=== PATIENT | male | born 1970 | race African-American/Black ===

== ENCOUNTER 2019-10-29 02:22 | Inpatient (IN) | payer MEDICAID ==
[~2019-10-29] VITALS: Ht 177.8 cm; Wt 96.1 kg
[2019-10-29] MEDS ORDERED: ACETAMINOPHEN 325 MG TABLET PO ONE (03:30)
[2019-10-29 04:08] LABS: BASOPHILS % (AUTO) 0.2 % (0.0-2.0); EOSINOPHILS % (AUTO) 0 % (1.0-6.0); HEMATOCRIT 43.6 % (41-53); MEAN CORPUSCULAR HEMOGLOBIN 31.2 pg (26.0-34.0); MEAN CORPUSCULAR HGB CONC 34.3 G/dL (31.0-37.0); MEAN CORPUSCULAR VOLUME 91 fL (80-100); MONOCYTES # (AUTO) 0.6 K/uL (0.1-1.0); MONOCYTES % (AUTO) 8.2 % (2.0-9.0); NEUTROPHILS % (AUTO) 78.6 % (40.0-70.0); PLATELET COUNT (AUTO) 291 K/uL (150-450); RED CELL DISTRIBUTION WIDTH 14.4 % (11.5-14.5)
[2019-10-29 04:16] LABS: ANION GAP 14 mmol/L (8-16); CALCIUM, TOTAL 8.9 mg/dL (8.8-10.5); CARBON DIOXIDE 22 mmol/L (22-29); CHLORIDE 99 mmol/L (98-107); CREATININE 1.16 mg/dL (0.60-1.30); GLOMERULAR FILTR. RATE CALC > 60 mL/min (>60); GLUCOSE,RANDOM 113 mg/dL (70-110); POTASSIUM 3.8 mmol/L (3.5-5.1); SODIUM SERUM 135 mmol/L (136-145); UREA NITROGEN, BLOOD 18 mg/dL (7-18)
[2019-10-29 04:23] LABS: ALANINE AMINOTRANSFERASE 62 U/L (12-78); ALBUMIN 3.5 g/dL (3.4-5.0); ALKALINE PHOSPHATASE 71 U/L (46-116); ASPARTATE AMINOTRANSFERASE 73 U/L (15-37); BILIRUBIN,TOTAL 0.8 mg/dL (0.1-1.0); TOTAL PROTEIN, SERUM 8.5 g/dL (6.4-8.2)
[2019-10-29] MEDS ORDERED: ACETAMINOPHEN 325 MG TABLET PO PRN ×2 (04:45→06:00)
[2019-10-29] MEDS ORDERED: ONDANSETRON HCL 4 MG/2 ML VIAL IVP PRN (04:45)
[2019-10-29] MEDS ORDERED: 0.9% SODIUM CHLORIDE 10 ML SYRINGE IVP PRN (04:45)
[2019-10-29] MEDS ORDERED: AZITHROMYCIN 500 MG TABLET PO ONE (05:00)
[2019-10-29] MEDS ORDERED: HYDROXYCHLOROQUINE SULFATE 200 MG TABLET PO ONE (05:00)
[2019-10-29 05:27] LABS: C-REACTIVE PROTEIN QUANT 12.17 mg/dL (0.00-0.30)
[2019-10-29 05:28] LABS: FERRITIN 1730 ng/mL (26-388)
[2019-10-29 05:39] LABS: LACTATE DEHYDROGENASE 520 U/L (85-227)
[2019-10-29] MEDS ORDERED: MAGNESIUM HYDROXIDE SUSPENSION 30 ML UDCUP PO PRN (06:00)
[2019-10-29] MEDS ORDERED: MORPHINE SULFATE 2 MG/ML SYRINGE IVP PRN (06:00)
[2019-10-29] MEDS ORDERED: ALBUTEROL SULFATE 2.5 MG/0.5 ML NEB SOLUTION NEB PRN (06:00)
[2019-10-29] MEDS ORDERED: BISACODYL 10 MG RECTAL RECTAL SUPPOSITORY PR PRN (06:00)
[2019-10-29] MEDS ORDERED: HYDROCODONE/ACETAMINOPHEN 5-325 MG TABLET PO PRN (06:00)
[2019-10-29] MEDS ORDERED: IPRATROPIUM BROMIDE 0.5 MG/2.5 ML NEB SOLUTION NEB PRN (06:00)
[2019-10-29] MEDS ORDERED: ZOLPIDEM TARTRATE 5 MG TABLET PO PRN (06:00)
[2019-10-29 06:12] VITALS: BP 109/76
[2019-10-29 07:19] VITALS: BP 106/73
[2019-10-29] MEDS ORDERED: SODIUM CHLORIDE 0.9% 500 ML IV ONE (08:14)
[2019-10-29] MEDS: DOCUSATE SODIUM 100 MG CAPSULE PO SCH ×2 (08:20→20:27)
[2019-10-29] MEDS: HEPARIN SODIUM,PORCINE 5,000 UNITS/ML VIAL SQ SCH ×2 (08:20→16:18)
[2019-10-29] MEDS: HYDROXYCHLOROQUINE SULFATE 200 MG TABLET PO SCH ×2 (08:21→20:27)
[2019-10-29] MEDS: CefTRIAXone 1 GM/DEXTROSE 50 ML IV SCH (08:22)
[2019-10-29 11:01] VITALS: BP 108/70
[2019-10-29] MEDS: ZINC SULFATE 220 MG CAPSULE PO SCH (12:48)
[2019-10-29 15:38] VITALS: BP 106/69
[2019-10-29 19:14] VITALS: BP 112/74
[2019-10-30 00:06] VITALS: BP 105/68
[2019-10-30 04:07] VITALS: BP 109/63
[2019-10-30] MEDS: CefTRIAXone 1 GM/DEXTROSE 50 ML IV SCH (06:20)
[2019-10-30 07:07] VITALS: BP 105/66
[2019-10-30 07:48] LABS: BASOPHILS % (AUTO) 0.4 % (0.0-2.0); EOSINOPHILS % (AUTO) 0.1 % (1.0-6.0); HEMATOCRIT 41.8 % (41-53); HEMOGLOBIN 14.2 g/dL (13.5-17.5); LYMPHOCYTES # (AUTO) 1.6 K/uL (1.0-4.8); LYMPHOCYTES % (AUTO) 25.2 % (22.0-44.0); MEAN CORPUSCULAR HEMOGLOBIN 31.1 pg (26.0-34.0); MEAN CORPUSCULAR VOLUME 92 fL (80-100); MONOCYTES # (AUTO) 0.6 K/uL (0.1-1.0); MONOCYTES % (AUTO) 9.5 % (2.0-9.0); NEUTROPHILS % (AUTO) 64.8 % (40.0-70.0); PLATELET COUNT (AUTO) 345 K/uL (150-450); RED BLOOD CELL COUNT(AUTO) 4.57 MIL/uL (4.50-5.90); RED CELL DISTRIBUTION WIDTH 14.3 % (11.5-14.5)
[2019-10-30 09:07] LABS: ALANINE AMINOTRANSFERASE 77 U/L (12-78); ALBUMIN 3.1 g/dL (3.4-5.0); ALKALINE PHOSPHATASE 75 U/L (46-116); ANION GAP 15 mmol/L (8-16); ASPARTATE AMINOTRANSFERASE 77 U/L (15-37); BILIRUBIN,TOTAL 0.7 mg/dL (0.1-1.0); C-REACTIVE PROTEIN QUANT 13.65 mg/dL (0.00-0.30); CALCIUM, TOTAL 8.8 mg/dL (8.8-10.5); CARBON DIOXIDE 22 mmol/L (22-29); CHLORIDE 98 mmol/L (98-107); CREATINE KINASE, TOTAL ONLY 299 U/L (39-308); CREATININE 1.08 mg/dL (0.60-1.30); FERRITIN 1778 ng/mL (26-388); GLOMERULAR FILTR. RATE CALC > 60 mL/min (>60); GLUCOSE,RANDOM 98 mg/dL (70-110); POTASSIUM 3.8 mmol/L (3.5-5.1); SODIUM SERUM 135 mmol/L (136-145); TOTAL PROTEIN, SERUM 7.9 g/dL (6.4-8.2); UREA NITROGEN, BLOOD 18 mg/dL (7-18)
[2019-10-30] MEDS: ZINC SULFATE 220 MG CAPSULE PO SCH ×2 (09:17→21:08)
[2019-10-30] MEDS: HYDROXYCHLOROQUINE SULFATE 200 MG TABLET PO SCH ×2 (09:17→21:08)
[2019-10-30] MEDS: DOCUSATE SODIUM 100 MG CAPSULE PO SCH ×2 (09:17→21:00)
[2019-10-30] MEDS: HEPARIN SODIUM,PORCINE 5,000 UNITS/ML VIAL SQ SCH ×3 (09:18→16:01)
[2019-10-30 09:19] LABS: LACTATE DEHYDROGENASE 532 U/L (85-227)
[2019-10-30 10:36] VITALS: BP 102/69
[2019-10-30] MEDS: AZITHROMYCIN 500 MG TABLET PO SCH (12:06)
[2019-10-30 15:54] VITALS: BP 100/73
[2019-10-30 19:53] VITALS: BP 104/62
[2019-10-31 00:44] VITALS: BP 99/73
[2019-10-31 04:00] VITALS: BP 110/77
[2019-10-31 09:00] VITALS: BP 107/66
[2019-10-31] MEDS: DOCUSATE SODIUM 100 MG CAPSULE PO SCH ×2 (09:00→20:36)
[2019-10-31] MEDS: HEPARIN SODIUM,PORCINE 5,000 UNITS/ML VIAL SQ SCH ×3 (10:13→16:43)
[2019-10-31] MEDS: ZINC SULFATE 220 MG CAPSULE PO SCH ×2 (10:14→20:36)
[2019-10-31] MEDS: AZITHROMYCIN 500 MG TABLET PO SCH (10:15)
[2019-10-31] MEDS: HYDROXYCHLOROQUINE SULFATE 200 MG TABLET PO SCH ×2 (10:15→20:36)
[2019-10-31 11:28] LABS: ALANINE AMINOTRANSFERASE 90 U/L (12-78); ALBUMIN 3.3 g/dL (3.4-5.0); ALKALINE PHOSPHATASE 80 U/L (46-116); ANION GAP 10 mmol/L (8-16); ASPARTATE AMINOTRANSFERASE 80 U/L (15-37); BILIRUBIN,TOTAL 0.5 mg/dL (0.1-1.0); C-REACTIVE PROTEIN QUANT 8.65 mg/dL (0.00-0.30); CALCIUM, TOTAL 9.1 mg/dL (8.8-10.5); CARBON DIOXIDE 28 mmol/L (22-29); CHLORIDE 101 mmol/L (98-107); CREATININE 1.04 mg/dL (0.60-1.30); FERRITIN 1512 ng/mL (26-388); GLOMERULAR FILTR. RATE CALC > 60 mL/min (>60); GLUCOSE,RANDOM 97 mg/dL (70-110); LACTATE DEHYDROGENASE 472 U/L (85-227); POTASSIUM 4.2 mmol/L (3.5-5.1); SODIUM SERUM 139 mmol/L (136-145); TOTAL PROTEIN, SERUM 8.5 g/dL (6.4-8.2); TRIGLYCERIDES 172 mg/dL (15-150); UREA NITROGEN, BLOOD 22 mg/dL (7-18)
[2019-10-31] MEDS: MULTIVITAMINS WITH MINERALS, THERAPEUTIC TABLET PO SCH (12:46)
[2019-10-31 12:53] VITALS: BP 117/77
[2019-10-31 16:57] VITALS: BP 110/75
[2019-10-31 20:00] VITALS: BP 110/68
[2019-11-01] VITALS (7 sets, daily range): BP systolic 97–117; BP diastolic 43–72
[2019-11-01 08:13] LABS: BASOPHILS % (AUTO) 0.5 % (0.0-2.0); HEMATOCRIT 43.4 % (41-53); HEMOGLOBIN 14.4 g/dL (13.5-17.5); LYMPHOCYTES % (AUTO) 36.1 % (22.0-44.0); MEAN CORPUSCULAR HEMOGLOBIN 30.6 pg (26.0-34.0); MEAN CORPUSCULAR HGB CONC 33.2 G/dL (31.0-37.0); MEAN CORPUSCULAR VOLUME 92 fL (80-100); MONOCYTES # (AUTO) 0.7 K/uL (0.1-1.0); MONOCYTES % (AUTO) 13.1 % (2.0-9.0); NEUTROPHILS # (AUTO) 2.7 K/uL (1.8-7.7); NEUTROPHILS % (AUTO) 49.3 % (40.0-70.0); PLATELET COUNT (AUTO) 442 K/uL (150-450); RED CELL DISTRIBUTION WIDTH 14.3 % (11.5-14.5)
[2019-11-01 09:14] LABS: ALANINE AMINOTRANSFERASE 135 U/L (12-78); ALBUMIN 3.1 g/dL (3.4-5.0); ALKALINE PHOSPHATASE 74 U/L (46-116); ANION GAP 12 mmol/L (8-16); ASPARTATE AMINOTRANSFERASE 108 U/L (15-37); BILIRUBIN,TOTAL 0.5 mg/dL (0.1-1.0); C-REACTIVE PROTEIN QUANT 5.41 mg/dL (0.00-0.30); CALCIUM, TOTAL 9.1 mg/dL (8.8-10.5); CARBON DIOXIDE 26 mmol/L (22-29); CHLORIDE 102 mmol/L (98-107); CREATININE 0.95 mg/dL (0.60-1.30); FERRITIN 1578 ng/mL (26-388); GLOMERULAR FILTR. RATE CALC > 60 mL/min (>60); GLUCOSE,RANDOM 95 mg/dL (70-110); LACTATE DEHYDROGENASE 436 U/L (85-227); POTASSIUM 3.9 mmol/L (3.5-5.1); SODIUM SERUM 140 mmol/L (136-145); TOTAL PROTEIN, SERUM 7.9 g/dL (6.4-8.2); UREA NITROGEN, BLOOD 21 mg/dL (7-18)
[2019-11-01] MEDS: AZITHROMYCIN 500 MG TABLET PO SCH (09:39)
[2019-11-01] MEDS: DOCUSATE SODIUM 100 MG CAPSULE PO SCH ×2 (09:40→20:11)
[2019-11-01] MEDS: HYDROXYCHLOROQUINE SULFATE 200 MG TABLET PO SCH ×2 (09:40→20:11)
[2019-11-01] MEDS: ZINC SULFATE 220 MG CAPSULE PO SCH ×2 (09:40→20:11)
[2019-11-01] MEDS: HEPARIN SODIUM,PORCINE 5,000 UNITS/ML VIAL SQ SCH ×4 (09:40→23:36)
[2019-11-01] MEDS: MULTIVITAMINS WITH MINERALS, THERAPEUTIC TABLET PO SCH (09:40)
[2019-11-02 05:03] VITALS: BP 94/55
[2019-11-02] MEDS: AZITHROMYCIN 500 MG TABLET PO SCH (08:20)
[2019-11-02] MEDS: ZINC SULFATE 220 MG CAPSULE PO SCH (08:20)
[2019-11-02] MEDS: MULTIVITAMINS WITH MINERALS, THERAPEUTIC TABLET PO SCH (08:20)
[2019-11-02] MEDS: DOCUSATE SODIUM 100 MG CAPSULE PO SCH (08:20)
[2019-11-02] MEDS: HEPARIN SODIUM,PORCINE 5,000 UNITS/ML VIAL SQ SCH (08:20)
[2019-11-02] MEDS: HYDROXYCHLOROQUINE SULFATE 200 MG TABLET PO SCH (08:20)
[2019-11-02 08:24] VITALS: BP 103/70
[2019-11-02 12:27] VITALS: BP 109/74
== END 2019-11-02 15:20 | disposition home or self-care (01) | DRG 137 ==
LOC: EMS 02:22 → 5N 05:18
PROVIDERS: ADMIT Hospitalist; ATTEND Hospitalist
DX: U07.1 COVID-19 (principal); J12.89 Other viral pneumonia; R19.7 Diarrhea, unspecified
CPT/HCPCS: 71250; 82728; 83520; 83615; 84478; 85379; 86140; 86850; 86900; 86901; 87635; 93005; J0696; J1644; J7040

== ENCOUNTER 2019-11-10 20:06 | Emergency (ER) | payer MEDICAID | END 2019-11-10 20:14 | disposition left against medical advice (07) | LOC: EMS 20:09 | DX: Z11.59 Encounter for screening for other viral diseases (principal); Z53.21 Procedure and treatment not carried out due to patient leaving prior to being seen by health care provider ==

== ENCOUNTER 2020-06-11 00:09 | Emergency (ER) | payer MEDICAID ==
[~2020-06-11] VITALS: Ht 177.8 cm; Wt 97.7 kg
[2020-06-11 00:10] VITALS: BP 129/89
[2020-06-11 06:45] LABS: COVID AG,FIA SOURCE NASOPHARYNGEAL
== END 2020-06-11 01:51 | disposition home or self-care (01) ==
LOC: EMS 00:10
DX: Z20.828 Contact with and (suspected) exposure to other viral communicable diseases (principal); F17.210 Nicotine dependence, cigarettes, uncomplicated
CPT/HCPCS: 87426; 99283; C9803; U0003